=== PATIENT | female | born 2000 | race Caucasian/White ===

== ENCOUNTER 2023-09-05 23:21 | Emergency (ER) | payer BC, SELFPAY ==
[2023-09-05 23:47] VITALS: BP 124/80; PULSE 121; RESP 16; TEMP 36.6; O2SAT 99; BMI 30.4
--- NOTE | 2023-09-06 00:12 | ED_ITS ---
HPI - General Adult General Chief complaint: Skin/Abscess/Foreign Body Stated complaint: swallowed her nose piercing ring Fri- sharp pain Time Seen by Provider: 09/05/23 23:53 Source: patient Mode of arrival: ambulatory Limitations: no limitations History of Present Illness HPI narrative: 22-year-old female presents the emergency department for evaluation of epigastric area abdominal pain after ingesting a nose ring about 50 hours ago. She shows me a picture of a similar nose ring. It is a swing clasp type, does not have a wide caliber sharp edge, just a pointed post. The entire ring is only about 8 mm in size. She reports that she had a bowel movement that was hard about 2 hours ago and was slightly painful. Since then she has had some very mild nausea and mild epigastric pain. She did not try taking any medication to help her symptoms. She has not checked for foreign body in her stool. There is no fever. Her appetite has been fine. No bloody stools, no vomiting. She is worried about the foreign body and presents to the emergency department. Past medical history is most notable for a ?chronic stomach condition related to her anxiety?. Denies prior endoscopy or GI surgeries. She also has significant depression and anxiety. Only home medication is Effexor 75 mg once daily. Nonsmoker. ROS is notable for the GI symptoms as above and also reports increased anxiety since this evening. Otherwise benign times 12 systems. Related Data Home Medications Medication Instructions Recorded Confirmed cetirizine 10 mg capsule (Zyrtec) 10 mg PO QDAY PRN 06/29/23 06/29/23 loratadine 10 mg tablet (Claritin) 10 mg PO QDAY 06/29/23 06/29/23 venlafaxine 75 mg capsule,extended 75 mg PO DAILY 06/29/23 06/29/23 release 24 hr Allergies Allergy/AdvReac Type Severity Reaction Status Date / Time No Known Drug Allergies Allergy Verified 06/29/23 15:13 [facility] Social History Smoking Status: Never smoker Do you use any of these nicotine containing products: None How often do you have a drink containing alcohol: never AUDIT-C Alcohol total score: 0 Non-prescribed substance use: denies use Exam Const: Vital Signs, click to edit/add: Vital Signs - 24 hr 09/05/23 23:47 Temperature 97.8 F Pulse Rate [Pulse Oximeter] 121 H Respiratory Rate 16 Blood Pressure [Ri ght Upper Arm] 124/80 Pulse Oximetry 99 Oxygen Delivery Me thod Room Air Documenting provider has reviewed patient's vital signs: yes Common normals: alert General appearance: well kempt Other: Patient is heard giggling with friend in exam room prior to my entry. Appears very comfortable, well nourished, well hydrated and not in any significant pain. She is very friendly and cooperative but does seem mildly anxious. Good historian. No signs intoxication HENMT: Common normals: normocephalic and moist oral mucous membranes Head and scalp: normocephalic Other: New nose ring in place. No signs of surrounding redness to nares. Eye: Common normals: conjunctivae normal General eye: normal appearance of both eyes Conjunctiva: conjunctiva(e) normal Neck & C-Spine: Common normals: no lymphadenopathy General: normal visual inspection Resp: Common normals: normal respiratory effort, no use of accessory muscles and clear to auscultation bilaterally Effort & inspection: able to speak in complete sentences Auscultation: clear to auscultation bilaterally Cardio: Common normals: regular rate, regular rhythm, S1 normal heart sound, S2 normal heart sound and no murmurs Rate: regular rate Rhythm: regular rhythm Heart sounds: S1 normal and S2 normal GI: Common normals: Normal to inspection, nondistended, normoactive bowel sounds present, soft to palpation, no hepatosplenomegaly and no masses Palpation: soft and no hepatosplenomegaly Other: Very mild epigastric tenderness only, certainly no rebound tenderness, guarding or pain in other areas. Bowel sounds are normoactive. Extremity: Common normals: normal to inspection and normal capillary refill Neuro: Sensorium/orientation: alert Speech: speech normal Motor exam: no movement abnormalities noted Psych: Common normals: speech normal Appearance: well kempt Attitude: engaged Speech: normal speech Insight: fair Judgement: fair Skin: Common normals: no rashes or lesions noted General skin exam: no rashes or lesions noted Course Course ED Course: Counseled patient on findings and exam. Overall very reassuring. Offered blood work and imaging to look for signs of infection, inflammation, perforation or infection. Counseled that the risk of radiation may significantly outweigh the benefit with how benign her exam is. Together, we weighed this risk, in addition to cost of the studies with her reassuring exam. She is very reliable for follow-up and we extensively discussed the alarm symptoms. She will come back to the ED if she has card vomiting, fever, severe pain, bloody stools, inability to eat or other signs of significant worsening. She will be given a dose of famotidine for some stomach irritation and a little bit of Vistaril just to help with the anxiety. Counseled that she should take some melatonin when she gets home to help promote sleep and continue closely watching symptoms. Resuming perfectly normal diet and return to work and school as scheduled. She is in agreement with this plan and will watch closely for worsening symptoms. Vital Signs Vital signs: Initial Vital Signs Temperature 97.8 F 09/05/23 23:47 Temperature Source Temporal Artery Scan 09/05/23 23:47 Pulse Rate 121 H 09/05/23 23:47 Respiratory Rate 16 09/05/23 23:47 Blood Pressure 124/80 09/05/23 23:47 Blood Pressure Mean 94 09/05/23 23:47 Blood Pressure Position Sitting 09/05/23 23:47 Pulse Oximetry 99 09/05/23 23:47 Oxygen Delivery Method Room Air 09/05/23 23:47 Vital Signs Temperature 97.8 F 09/05/23 23:47 Pulse Rate 121 H 09/05/23 23:47 Respiratory Rate 16 09/05/23 23:47 Blood Pressure 124/80 09/05/23 23:47 Pulse Oximetry 99 09/05/23 23:47 Oxygen Delivery Method Room Air 09/05/23 23:47 Temperature 97.8 F 09/05/23 23:47 Pulse Rate 121 H 09/05/23 23:47 Respiratory Rate 16 09/05/23 23:47 Blood Pressure 124/80 09/05/23 23:47 Pulse Oximetry 99 09/05/23 23:47 Oxygen Delivery Method Room Air 09/05/23 23:47 Discharge Plan Discharge Clinical Impression: Foreign body ingestion Patient Disposition: Home w/ Parent or Adult Condition: Stable Instructions: Gastritis (DC) Additional Instructions: Your exam and story are consistent with some stomach irritation, likely a small scratch from ingestion of the ring. thankfully, your exam is not consistent w ith significant perforation, bleeding or other emergent condition. As we discussed, we certainly could do x-ray or CT scan imaging to locate the ring and to see if there are any signs of perforation. Your exam and story are so reassuring that I would not risk the radiation today. The risks seem to outweigh the benefits. I have given you an antacid. I would like for you to lease picker an over-the-c ounter similar medication and take this once daily for the next 3 days. Similar medicines would be either omeprazole, famotidine or another similar stomach acid remote inpatient coder. This will help minimize any irritation, and promote healing. I want you to come back to the emergency department if you have any fevers over 100.4, significant difficulty eating, bloody vomit, bloody stools or severe abdominal pain. You may return to work, school or any other activities with no restrictions at this time. You may continue eating a normal diet. Activity Level: No Restrictions Discharge Diet: Regular Prescriptions: No Action venlafaxine 75 mg capsule,extended release 24hr 75 mg PO DAILY loratadine [Claritin] 10 mg tablet 10 mg PO QDAY Zyrtec 10 mg capsule 10 mg PO QDAY PRN Follow Up/Referrals: Provider,Not a Local [Primary Care Provider] - Stand Alone Forms: Lingoing Info Instructions
[2023-09-06 00:18] VITALS: BP 118/74; PULSE 100; RESP 16; TEMP 36.6; O2SAT 99
[2023-09-06] MEDS: FAMOTIDINE 20 MG TABLET PO (00:18)
[2023-09-06] MEDS: hydrOXYzine pamoate 25 MG CAPSULE 50 MG PO (00:18)
[2023-09-06 00:19] VITALS: BP 118/74; PULSE 100; RESP 16; TEMP 36.6
== END 2023-09-06 00:26 | disposition home or self-care (01) ==
LOC: ED 09-06 00:20
PROVIDERS: Emergency Provider Family Medicine
DX: R10.13 Epigastric pain (principal); T18.2XXA Foreign body in stomach, initial encounter
CPT/HCPCS: 99283; A9270